=== PATIENT | female | born 1990 | race Two or more races ===

== ENCOUNTER 2017-01-13 18:46 | Outpatient (CLI) | payer MEDICAID ==
[2017-01-13 19:43] LABS: APPEARANCE,URINE SLIGHTLY-CLOUDY; BILIRUBIN,URINE NEGATIVE (NEGATIVE); GLUCOSE, URINE NEGATIVE (NEGATIVE); KETONES,URINE NEGATIVE (NEGATIVE); LEUKOCYTE ESTERASE,URINE NEGATIVE (NEGATIVE); NITRITE,URINE NEGATIVE (NEGATIVE); PROTEIN,URINE NEGATIVE (NEGATIVE); UROBILINOGEN,URINE NEGATIVE mg/dL (<2.0)
[2017-01-13 19:58] LABS: URINE BARBITURATES SCREEN NEGATIVE; URINE METHADONE SCREEN NEGATIVE; URINE OPIATES LOW NEGATIVE; URINE PHENCYCLIDINE SCREEN NEGATIVE
--- NOTE | 2017-01-13 20:24 | Non Stress Test Report ---
Non Stress Test Datetime Report Generated by CPN: 01/13/2017 20:24 DEMOGRAPHIC Test Number: 1 EGA NST: 39.5 INDICATION Indication for Study: Ordered by Provider MONITORING Monitor Explained: Monitor Explained; Test Explained; Patient Verbalized Understanding Time on Monitor: 01/13/2017 19:18 Time off Monitor: 01/13/2017 20:13 NST Duration: 55 NST INTERVENTIONS NST Interventions: PO Hydration Physician Notified NST: Moise BABY A: [id number] Movement : Present Contraction Frequency : 16 FHR Baseline : 140 Accelerations : 15X15 Decelerations : None Variability : Moderate 6-25bpm NST Review: Meets Criteria for Reactive NST NST Review and Verified By : Riley Mccrary RN NST Results: Reactive NST REPORT Report Trigger: Send Report
== END 2017-01-13 20:21 | disposition home health service (06) ==
LOC: LC 18:46
PROVIDERS: ATTEND Obstetrics & Gynecology
DX: O47.9 False labor, unspecified (principal)
CPT/HCPCS: 59025; 80307; 81005

== ENCOUNTER 2017-01-16 03:21 | Inpatient (IN) | payer MEDICAID ==
[2017-01-16 03:57] LABS: APPEARANCE,URINE SLIGHTLY-CLOUDY; BILIRUBIN,URINE NEGATIVE (NEGATIVE); GLUCOSE, URINE NEGATIVE (NEGATIVE); KETONES,URINE NEGATIVE (NEGATIVE); LEUKOCYTE ESTERASE,URINE MODERATE (NEGATIVE); NITRITE,URINE NEGATIVE (NEGATIVE); PROTEIN,URINE NEGATIVE (NEGATIVE); URINE SPECIFIC GRAVITY 1.008; UROBILINOGEN,URINE NEGATIVE mg/dL (<2.0)
[2017-01-16 04:01] LABS: AMNISURE (ROM) POSITIVE (NEGATIVE)
[2017-01-16 04:14] LABS: URINE BARBITURATES SCREEN NEGATIVE; URINE METHADONE SCREEN NEGATIVE; URINE OPIATES LOW NEGATIVE; URINE PHENCYCLIDINE SCREEN NEGATIVE
[2017-01-16 04:36] LABS: ABSOLUTE EOSINOPHILS # (AUTO) 0.2 10^3/uL (0.0-0.6); ABSOLUTE LYMPHOCYTES (AUTO) 1.5 10^3/uL (0.5-4.7); ABSOLUTE MONOCYTES (AUTO) 0.7 10^3/uL (0.1-1.4); ABSOLUTE NEUT (AUTO) 8.9 10^3/uL (1.7-8.2); BASOPHILS % (AUTO) 0.4 % (0-2); EOSINOPHILS % (AUTO) 1.9 % (0-6); HEMATOCRIT 35.9 % (36.0-47.0); HEMOGLOBIN 11.5 g/dL (12.0-15.5); HGB HCT DIFFERENCE -1.4; MEAN CORPUSCULAR HEMOGLOBIN 26.8 pg (27.0-33.4); MEAN CORPUSCULAR HGB CONC 32.2 g/dL (32.0-36.0); MEAN CORPUSCULAR VOLUME 84 fl (80-97); MONOCYTES % (AUTO) 6.3 % (3-13); RED CELL DISTRIBUTION WIDTH 16.7 % (11.5-14.0); SEGMENTED NEUTROPHILS % (AUTO) 78.4 % (42-78); WHITE BLOOD COUNT 11.3 10^3/uL (4.0-10.5)
[2017-01-16] MEDS ORDERED: OXYTOCIN/NORMAL SALINE 20 UNIT/1,000 ML RTUINJ IV PRN (07:28)
[2017-01-16] MEDS ORDERED: OXYTOCIN/NORMAL SALINE 20 UNIT/1,000 ML RTUINJ ONE (07:39)
[2017-01-16] MEDS: RINGERS SOLUTION,LACTATED 1,000 ML IV PRN ×2 (08:03→21:15)
[2017-01-16] MEDS ORDERED: PROMETHAZINE HCL INJ 25 MG/1 ML VIAL ONE ×2 (11:25→18:17)
[2017-01-16] MEDS ORDERED: NALBUPHINE HCL INJ 10 MG/1 ML AMPULE ONE ×2 (11:25→18:17)
[2017-01-16] MEDS ORDERED: NALBUPHINE HCL INJ 10 MG/1 ML AMPULE INJ ONE (12:00)
[2017-01-16] MEDS ORDERED: PROMETHAZINE HCL INJ 25 MG/1 ML VIAL IV ONE ×2 (12:00→18:45)
[2017-01-16] MEDS ORDERED: NALBUPHINE HCL INJ 10 MG/1 ML AMPULE IV ONE (18:16)
[2017-01-16] MEDS ORDERED: BUPIVACAINE HCL 0.25 % INJ/PF (2.5 MG/1 ML) 30 ML VIAL ONE (19:13)
[2017-01-16] MEDS ORDERED: EPHEDRINE SULFATE INJ 50 MG/1 ML AMPULE ONE (19:13)
[2017-01-16] MEDS ORDERED: FENTANYL/BUPIVACAINE/NS/PF 200 MCG/100 ML RTUINJ EPI ONE (19:13)
[2017-01-16] MEDS ORDERED: CEFAZOLIN 1 GM/D5W RTU 1 GM/50 ML RTUPB IV ONE (23:40)
[2017-01-17] MEDS ORDERED: LIDOCAINE 1% INJ-PF (10 MG/ML) 30 ML SDV ONE (04:41)
[2017-01-17] MEDS ORDERED: MISOPROSTOL 0.2 MG TABLET ONE (04:41)
[2017-01-17] MEDS ORDERED: OXYTOCIN/NORMAL SALINE 20 UNIT/1,000 ML RTUINJ ONE (04:42)
[2017-01-17] MEDS ORDERED: CEFAZOLIN 2 GM/D5W RTU 2 GM/50 ML RTUPB IV ONE (07:54)
[2017-01-17] MEDS ORDERED: ACETAMINOPHEN 100 ML IV PRN (08:45)
[2017-01-17] MEDS ORDERED: MORPHINE SULFATE 10 MG/ML INJ IV ONE (09:15)
[2017-01-17] MEDS ORDERED: MORPHINE SULFATE 10 MG/ML INJ ONE (09:19)
[2017-01-17] MEDS ORDERED: DIPH/PERTUSS(ACELL)/TETANUS VAC/PF 0.5 ML SYR (>=10YO) IM PRN (10:31)
[2017-01-17] MEDS ORDERED: BENZOCAINE/MENTHOL AEROSOL SPRAY 56 ML TOP PRN (10:31)
[2017-01-17] MEDS ORDERED: MEASLES,MUMPS&RUBELLA VACC/PF 0.5 ML VIAL SUBCUT PRN (10:31)
[2017-01-17] MEDS ORDERED: MISOPROSTOL 0.2 MG TABLET PR PRN (10:31)
[2017-01-17] MEDS ORDERED: DIBUCAINE 1% OINTMENT 28 GM TP PRN (10:31)
[2017-01-17] MEDS ORDERED: OXYTOCIN/NORMAL SALINE 1,000 ML IV PRN (10:31)
[2017-01-17] MEDS ORDERED: GLYCERIN/WITCH HAZEL LEAF 1 EACH MED..PAD TP PRN (10:36)
[2017-01-17] MEDS ORDERED: NA PHOS,M-B/NA PHOS,DI-BA (ADULT) 133 ML ENEMA PR PRN (10:36)
[2017-01-17] MEDS ORDERED: PROMETHAZINE HCL 25 MG TABLET PO PRN (10:36)
[2017-01-17] MEDS ORDERED: PROMETHAZINE HCL INJ 25 MG/1 ML VIAL IV PRN (10:36)
[2017-01-17] MEDS ORDERED: PSEUDOEPHEDRINE HCL 30 MG TABLET PO PRN (10:36)
[2017-01-17] MEDS ORDERED: DIPHENHYDRAMINE HCL 25 MG CAPSULE PO PRN (10:36)
[2017-01-17] MEDS ORDERED: MAGNESIUM HYDROXIDE SUSP 30 ML UDCUP PO PRN (10:36)
[2017-01-17] MEDS ORDERED: ACETAMINOPHEN 650 MG SUPP.RECT PR PRN (10:36)
[2017-01-17] MEDS ORDERED: PROMETHAZINE HCL 25 MG SUPP.RECT PR PRN (10:36)
--- NOTE | 2017-01-17 11:44 | Admission Physical ---
Datetime Report Generated by CPN: 01/17/2017 11:44 CURRENT ADMISSION Chief Complaint: Uterine Contractions; Suspected Ruptured Membranes Indication for Induction: PROM Admit Plan: Admit to Unit; Initiate Labor Induction Protocol ALLERGIES Medication Allergies: No Medication Allergies: No Known Allergies (01/16/2017) Latex: No Latex Allergies OBSTETRICAL HISTORY EDC: 01/15/2017 00:00 : 2 Para: 0 Term: 0 : 0 SAB: 1 IAB: 0 Ectopic: 0 Livin Cesareans: 0 VBACs: 0 Multiple Births: 0 Gestational Diabetes: No Rh Sensitization: No Incompetent Cervix: No CRUZ: No Infertility: No ART Treatment: No Uterine Anomaly: No IUGR: No Hx Previous C/S: No Macrosomia: No Hx Loss/Stillborn: No PIH: No Hx : No Placenta Previa/Abruption: No Depression/PP Depression: No PTL/PROM: No Post Hemorrhage: No Current Procedures: Ultrasound Obstetrical History Comments: G1 SAB G2 current pregnanvy SEE RECORDS Alcohol: No Marijuana : No Cocaine: No Other Illicit Drugs: No Cigarettes: Never Smoker. [id number] MEDICAL HISTORY Diabetes: No Blood Transfusion: No Pulmonary Disease (Asthma, TB): No Breast Disease: No Hypertension: No Automation Technologist Surgery: No Heart Disease: No Hosp/Surgery: No Autoimmune Disorder: No Anesthetic Complications: No Kidney Disease: No Abnormal Pap Smear: No Neuro/Epilepsy: No Psychiatric Disorders: No Other Medical Diseases: Yes Hepatitis/Liver Disease: No Significant Family History: No Varicosities/Phlebitis: No Trauma/Violence : No Thyroid Dysfunction: No Medical History Comments: alopecia INFECTIOUS HISTORY Gonorrhea: No Genital Herpes: No Chlamydia: No Tuberculosis: No Syphilis: No Hepatitis: No HIV/AIDS Exposure: No Rash or Viral Illness: No HPV: No PHYSICAL EXAM General: Normal HEENT: Normal Neurologic: Normal Thyroid: Normal Heart: Normal Lungs: Normal Breast: Deferred Back: Normal Abdomen: Normal Genitourinary Exam: Normal Extremities: Normal DTRs: Normal Pelvic Type: Adequate Vital Signs: Reviewed VAGINAL EXAM Dilatation: 1 Effacement: 70 Station: -3 MEMBRANES Membranes: Ruptured Amniotic Fluid Color: Clear FETUS A EGA: 40.1 Monitoring: External US FHR- Baseline: 130 Variability: Moderate 6-25bpm Decelerations: None FHR Category: Category I Presentation: Vertex Admit Comment: 26yo at 40+1ega presents for PROM at 1cm at approx 0130. c/b maternal obesity and S>D. GBS negative. Will initiate Pitocin for PROM. Reviewed IOL process and pt. Anticipate . o/w uncomplicated. W 9# PLANS FOR LABOR AND DELIVERY Labor and Delivery: None Pain Management: None Feeding Preference: Breast Benefit of Breast Feed Discussed: Yes Circumcision: N/A INFORMED CONSENT Informed Consent Obtained: Vaginal Delivery; Induction of Labor; Risks, Benefits and Alternatives Discussed Signature: with User ID: [email or web address]
--- NOTE | 2017-01-17 12:02 | Delivery Summary ---
Del Sum A-C Datetime Report Generated by CPN: 01/17/2017 12:01 DELIVERY PERSONNEL DELIVERY PERSONNEL: [id number] Delivery Doctor:: Beth GREENE CNM Nurse Roof Bolter Helper Certified:: Elsy Greene CNM Labor and Delivery Nurse:: Beth TEMPLE RNsoftware publisher Nurse:: Parisa Woods RN Nursery Nurse:: Anna Darby RN It Assistant/EXPERIMENTAL ASSEMBLER: Nory Hanley CNA II It Assistant/CHRIS: Mirella Contreras, MARKETING RESEARCHER MATERNAL INFORMATION Delivery Anesthesia: Epidural Medications After Delivery: Pitocin Drip 20 Units/1000ml NSS; Other-Please Comment Meds After Delivery Comment: CYTOTEC 1000MCG ME BY CNM Estimated Blood Loss (ml): 350 Maternal Complications: Chorioamnionitis; Maternal Fever; Other Other Maternal Complications: PROLONGED ROM Provider Comments: care acquired of this 26yo @ 40w2d with PROM >24hrs and meconium stained fluid who had received two doses of ancef for and maternal tachycardia. pt. with urge to push and body/abdominal ache as well as warm to touch. Began pushing with patient. Both baby and mother remained tachycardic and mom with temp of 100.9 and diagnosed with chorioamnionitis. IV tylenol given. Pt. continued to push and went on to deliver a viable baby girl. Terminal meconium noted at delivery. Baby with respiratory effort and cry (nursery present for delivery) and placed on maternal abdomen and assessed by nursery nurse while on mother's abdomen. Cord clamped x2 and cut after pulsation cessation, cord blood obtained. Placenta out spontaneously intact. Fundus firm with massage and moderate bleeding that would not stop. 1000mcg cytotec given rectally and several clots out with vaginal exploration then fundus firm and bleeding stable. MLL repaired in the usual fashion and hemostatic. Baby to nursery for further evaluation. Mother in room and stable. Will continue ancef 2g x 24hrs. Temperature after delivery 100.2 LABOR SUMMARY EDC: 01/15/2017 00:00 No. Babies in Womb: 1 Attempted: No Labor Anesthesia: Epidural LABOR INFORMATION Reason for Induction: Not Applicable Complete Dilatation: 01/17/2017 07:39 Other Ripening Agents: CYTOTEC 1000 MG Oxytocin: Augmentation Group B Beta Strep: negative Antibiotics # of Doses: 2 Antibiotics Time of Last Dose: 802 Name of Antibiotic Given: ANCEF Steroids Given: None Reason Steroids Not Administered: Not Applicable MEMBRANES Membranes Rupture Method: Spontaneous Rupture of Membranes: 01/16/2017 01:30 Length of Rupture (hr): 31.57 Amniotic Fluid Color: Light Meconium Amniotic Fluid Amount: Small Amniotic Fluid Odor: Normal STAGES OF LABOR Stage 2 hr: 1 Stage 2 min: 25 Stage 3 hr: 0 Stage 3 min: 6 VAGINAL DELIVERY Episiotomy: None Laceration Extension: Second Degree Laceration Type: Perineal Laceration Repair: Yes Laceration Repair Note: 2-[address] in the usual fashion, hemostasis achieved Sponge Count Correct: N/A; Vaginal Sweep Performed Sharps Count Correct: N/A CSECTION DELIVERY Primary Indication: N/A BABY A INFORMATION Infant Delivery Date/Time: 01/17/2017 09:04 Method of Delivery: Vaginal Born in Route : No : N/A Forceps: N/A Vacuum Extraction: N/A Shoulder Dystocia : No PRESENTATION/POSITION BABY A Presentation: Cephalic Cephalic Presentation: Vertex Vertex Position: Right Occipital Anterior Breech Presentation: N/A PLACENTA INFORMATION BABY A Placenta Delivery Time : 01/17/2017 09:10 Placenta Method of Delivery: Spontaneous Placenta Status: Delivered SCORES BABY A Heart Rate 1 min: >100 bpm Resp Effort 1 min: Slow, Irregular Reflex Irritability 1 min: Cough or Sneeze or Pulls Away Muscle Tone 1 min: Some Flexion of Extremities Color 1 min: Blue/Pale SCORE 1 MIN: 6 Heart Rate 5 min: >100 bpm Resp Effort 5 min: Good Cry Reflex Irritability 5 min: Cough or Sneeze or Pulls Away Muscle Tone 5 min: Some Flexion of Extremities Color 5 min: Body [place], Extremities Blue SCORE 5 MIN: 8 INFANT INFORMATION BABY A Gestational Age at Delivery: 40.2 Gestational Status: Full Term- 39- 40.6 Weeks Infant Outcome : Liveborn Condition : Stable Infant Sex: Female IDENTIFICATION BABY A Verification Date/Time: 01/17/2017 09:16 ID Band Number: [id number] Mother's Name Verified: Yes RN Verifying : Angela Phillips RN Additional Verifying Personnel: Jazzmine Vasques RN WEIGHT/LENGTH BABY A Infant Birthweight (gm): 3680 Infant Weight (lb): 8 Weight (oz): 2 Infant Length (in): 21.00 Length (cm): 53.34 CORD INFORMATION BABY A Nuchal Cord : Around Neck x1, Loose Cord Blood Taken: Yes-For Eval (Mom's Blood Type - or O+) Infant Suction: Mouth; Nose ASSESSMENT BABY A Complications: Extended Tachycardia; Multiple Variable Decels; Meconium Infant Complications- Other: TERMINAL MECONIUM Skin to Skin: Yes Skin to Skin Time (min): 3 Product Safety Expert/ALS Called : No Care By: Ryland DARBY RN Transferred To: Nursery BABY B INFORMATION : N/A SIGNATURES Assignment: Wilman Rivera DO Signature: with User ID: [email or web address] : with User ID: [email or web address]
[2017-01-17] MEDS: IBUPROFEN 800 MG TABLET PO SCH ×2 (14:44→22:08)
[2017-01-17] MEDS ORDERED: CEFAZOLIN 2 GM/D5W RTU 2 GM/50 ML RTUPB IV SCH (15:00)
[2017-01-17] MEDS: CEFAZOLIN 2 GM/D5W RTU 2 GM/50 ML RTUPB IV SCH (16:24)
[2017-01-17] MEDS: DOCUSATE SODIUM 100 MG CAPSULE PO SCH (17:12)
[2017-01-17] MEDS: FERROUS SULFATE 325 MG TABLET PO SCH (17:12)
[2017-01-17] MEDS: FAMOTIDINE 20 MG TABLET PO SCH (22:07)
[2017-01-17] MEDS ORDERED: CEFAZOLIN 1 GM/D5W RTU 1 GM/50 ML RTUPB IV ONE (23:59)
[2017-01-18] MEDS: CEFAZOLIN 2 GM/D5W RTU 2 GM/50 ML RTUPB IV SCH ×2 (01:13→08:38)
[2017-01-18] MEDS: IBUPROFEN 800 MG TABLET PO SCH ×2 (05:56→13:40)
[2017-01-18 07:27] LABS: HEMATOCRIT 28.3 % (36.0-47.0); HGB HCT DIFFERENCE -0.7; MEAN CORPUSCULAR HEMOGLOBIN 27.5 pg (27.0-33.4); MEAN CORPUSCULAR HGB CONC 32.4 g/dL (32.0-36.0); MEAN CORPUSCULAR VOLUME 85 fl (80-97); RED BLOOD COUNT 3.34 10^6/uL (3.72-5.28); RED CELL DISTRIBUTION WIDTH 17.3 % (11.5-14.0); WHITE BLOOD COUNT 15.1 10^3/uL (4.0-10.5)
[2017-01-18 07:42] LABS: HEMOGLOBIN 9.2 g/dL (12.0-15.5)
[2017-01-18] MEDS: ACETAMINOPHEN WITH CODEINE #3 TABLET PO PRN ×2 (08:50→15:15)
--- NOTE | 2017-01-18 09:26 | PDOC PROGRESS REPORT ---
Subjective-OB Subjective: Post Delivery Day: 26 year old. Denies any needs at this time Doing well, hsb at BS giving her a foot massage, daughter asleep in chair, no c/ o, mild cramping, normal bleeding, breast feeding, voiding, ambulating Physical Exam (OB) Vital Signs: Temp Pulse Resp BP Pulse Ox 97.5 F 85 14 114/71 100 01/18/17 07:19 01/18/17 07:19 01/18/17 07:19 01/18/17 07:19 01/18/17 07:19 Intake & Output 01/17/17 01/18/17 01/19/17 06:59 06:59 06:59 Intake Total 50 Balance 50 - PIH/Pre-Eclampsia Clonus: Negative - Lochia Lochia Amount: Scant < 10 ml Lochia Color: Rubra/Red - Abdomen Description: Tender, Soft, Round Hernia Present: No Fundal Description: Firm, Midline Fundal Height: u/u - u/2 Objective-Diagnostic Laboratory: 01/18/17 06:59 01/18/17 06:59 WBC 15.1 H RBC 3.34 L Hgb 9.2 L D Hct 28.3 L MCV 85 MCH 27.5 MCHC 32.4 RDW 17.3 H Plt Count 215 Assessment and Plan(PN) - Assessment and Plan (1) Anemia due to acute blood loss Is this a current diagnosis for this admission?: Yes (2) Vaginal delivery Is this a current diagnosis for this admission?: Yes - Time Spent with Patient Time with patient: Less than 15 minutes Medications reviewed and adjusted accordingly: Yes - Disposition Anticipated Discharge: Home Within: within 24 hours
[2017-01-18] MEDS: SENNOSIDES/DOCUSATE 8.6-50 MG 1 EACH TABLET PO SCH (10:20)
[2017-01-18] MEDS: DOCUSATE SODIUM 100 MG CAPSULE PO SCH ×2 (10:20→17:27)
[2017-01-18] MEDS: FERROUS SULFATE 325 MG TABLET PO SCH ×2 (10:20→17:27)
[2017-01-18] MEDS: FAMOTIDINE 20 MG TABLET PO SCH (10:20)
[2017-01-18] MEDS: PRENATAL VITAMIN W-O CA NO5/FE FUMARATE/FA CAPSULE PO SCH (10:21)
[2017-01-19] MEDS: IBUPROFEN 800 MG TABLET PO SCH ×2 (05:16→06:30)
[2017-01-19] MEDS: FAMOTIDINE 20 MG TABLET PO SCH ×2 (05:16→09:34)
[2017-01-19 08:36] VITALS: BP 115/67
[2017-01-19] MEDS: DOCUSATE SODIUM 100 MG CAPSULE PO SCH (09:34)
[2017-01-19] MEDS: PRENATAL VITAMIN W-O CA NO5/FE FUMARATE/FA CAPSULE PO SCH (09:34)
[2017-01-19] MEDS: FERROUS SULFATE 325 MG TABLET PO SCH (09:34)
[2017-01-19] MEDS: SENNOSIDES/DOCUSATE 8.6-50 MG 1 EACH TABLET PO SCH (09:34)
--- NOTE | 2017-01-19 10:32 | PDOC DISCHARGE SUMMARY ---
Final Diagnosis Discharge Date: 01/19/17 - Final Diagnosis (1) Anemia due to acute blood loss Is this a current diagnosis for this admission?: Yes (2) Vaginal delivery Is this a current diagnosis for this admission?: Yes Discharge Data - Discharge Medication Home Medications: Pnv No.122/Iron/Folic Acid [ Multi Tablet] 1 tab PO DAILY 01/16/17 Docusate Sodium [Colace 100 mg Capsule] 100 mg PO BID #60 capsule 01/19/17 Ferrous Sulfate [Feosol 325 mg Tablet] 325 mg PO BID #60 tablet 01/19/17 Ibuprofen [Motrin 800 mg Tablet] 800 mg PO Q8 #60 tablet 01/19/17 Gestational Age: 40.2 Reason(s) for Admission: Onset of Labor Procedures: NST Intrapartum Procedure(s): Spontaneous Vaginal Delivery - [place] Data Baby 1 Female at 1 minute: 6 at 5 minutes: 8 Weight: 3680 kg Home with Mother: Yes Complications: No - Diagnosis Test Laboratory: Temp Pulse Resp BP Pulse Ox 98.0 F 85 16 115/67 99 01/19/17 07:46 01/19/17 07:46 01/19/17 07:46 01/19/17 07:46 01/19/17 07:46 01/16/17 01/16/17 01/18/17 03:45 04:27 06:59 RBC 4.30 3.34 L Hgb 11.5 L 9.2 L D Hct 35.9 L 28.3 L Urine Opiates Screen NEGATIVE - Discharge information/Instructions Discharge Activity: Activity As Tolerated, Balance Activity w/Rest, Pelvic Rest , No tub bath Discharge Diet: Regular Disposition: HOME, SELF-CARE Follow up with: [facility] in: 4, Weeks
== END 2017-01-19 13:30 | disposition home or self-care (01) | DRG 775 ==
LOC: LC 03:21 → LR 04:04 → 2S 01-17 11:43
PROVIDERS: ADMIT Student in an Organized Health Care Education/Training Program; ATTEND Student in an Organized Health Care Education/Training Program
PROC: 4A1HXCZ Monitoring of Products of Conception, Cardiac Rate, External Approach (ICD-10-PCS; 2017-01-16)
PROC: 10E0XZZ Delivery of Products of Conception, External Approach (ICD-10-PCS; principal; 2017-01-17)
PROC: 0KQM0ZZ Repair Perineum Muscle, Open Approach (ICD-10-PCS; 2017-01-17)
DX: O42.12 Full-term premature rupture of membranes, onset of labor more than 24 hours following rupture (principal); O41.1230 Chorioamnionitis, third trimester, not applicable or unspecified; D62 Acute posthemorrhagic anemia; O99.02 Anemia complicating childbirth; O77.0 Labor and delivery complicated by meconium in amniotic fluid; E66.9 Obesity, unspecified; Z68.39 Body mass index [BMI] 39.0-39.9, adult; O70.1 Second degree perineal laceration during delivery; O69.81X0 Labor and delivery complicated by cord around neck, without compression, not applicable or unspecified; Z3A.40 40 weeks gestation of pregnancy; Z37.0 Single live birth
CPT/HCPCS: 36415; 80307; 81005; 84112; 85025; 85027; 86592; 86850; 86900; 86901; 88307; 94760; J0690; J2270; J2300; J2550; J2590; J3490